=== PATIENT | male | born 1975 | race African-American/Black ===

== ENCOUNTER 2025-06-17 10:39 | Outpatient (AMB) | payer OTHER, SELFPAY ==
[2025-06-17 10:51] VITALS: BP 134/74; PULSE 111; O2SAT 97; BMI 40.4
--- NOTE | 2025-06-17 10:51 | A.OFFVIS_ITS ---
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 Photographic Processor Required: No Allergies No Known Allergies Allergy (Verified 06/17/25 10:58) HPI Comments Details: 50-year-old male with a past medical history of chronic rhinitis and nasal obstruction with adhesions or nasal cavity who is being referred to me by ENT for the evaluation of underlying small-vessel vasculitis. Patient had been following ENT in February for sinusitis, this developed nine months ago. As a child he never had sinus issues, recurrent ear infections, no heamturia, no kidney problems, no numbness or weakness in arms or feet, no foot drop, no wrist drop, no fevers, nights weats, fatigue, weight loss, no eye pain, no eye redness, no eye inflammation, no skin rashes, no skin ulcers. in terms of joint pain, he endorses some shoulder stiffness in the right shoulder otherwise no other joint pain as such no bloody diarreaha no abdominal pain no ulcers in mouth, no dry eyes no dry mouth no rayanuds phenomenon endorses photosensitivity no recent medication,no cocaine use, no IV drug use He then where he underwent a biopsy of bilateral nasal turbinates which showed sinonasal tissue with chronic inflammation no diagnostic evidence of malignancy or vasculitis. His blood tests show a negative p-ANCA and C ANCA, slightly positive MPO at 490, ESR 41. FH: doesnt know he is adopted Vital signs reviewed Physical Examination CONSTITUITIONAL Patient alert and cooperative. Well appearing and in no apparent painful distress HEENT Conjunctiva and sclera clear. No lymphadenopathy. CHEST/RESPIRATORY SYSTEM Normal respiratory effort and able to speak in complete sentences. Clear to auscultation bilaterally. No crackles, rales, rhonchi, wheezes heard. CARDIAC SYSTEM Regular rate and rhythm. S1 and S2 heard no murmurs. Radial pulses intact bilaterally MSK Hands * Right Hand: Able to make a fist. No swelling or tenderness to palpation of the MCPs, PIPs or DIPs. No deformities noted. * Left Hand: Able to make a fist. No swelling or tenderness to palpation of the MCPs, PIPs or DIPs. No deformities noted. Wrists * Right Wrist: Full ROM to flexion and extension. No swelling or TTP * Left Wrist: Full ROM to flexion and extension. No swelling or TTP Elbows * Right Elbow: Full ROM. No swelling or TTP. No TTP of the medial epicondyle. No TTP of the lateral epicondyle * Left Elbow: Full ROM. No swelling or TTP. No TTP of the medial epicondyle. No TTP of the lateral epicondyle Shoulders * Right shoulder: Full ROM. No swelling noted. No TTP of the AC joint. No TTP of the subacromial bursa. No TTP of the posterior shoulder * Left shoulder: Full ROM. No swelling noted. No TTP of the AC joint. No TTP of the subacromial bursa. No TTP of the posterior shoulder Hips * Right hip: Good ROM. * Left hip: Good ROM. Hip bursa: No tenderness to palpation bilaterally Knees * Right knee: Full ROM. No swelling noted. No TTP of the knee joint line. No TTP of pes anserine bursa * Left knee: Full ROM. No swelling noted. No TTP of the knee joint line. No TTP of pes anserine bursa. Ankles * Right ankle: Good ankle dorsiflexion and plantar flexion. No swelling. No TTP of the ankle joint * Left ankle: Good ankle dorsiflexion and plantar flexion. No swelling. No TTP of the ankle joint Feet * Right foot: Negative squeeze test * Left foot: Negative squeeze test Tender points? * No tenderness to palpation of the bilateral trapezius, supraspinatus, anterior costochondral junctions, bilateral suboccipital muscle insertions SKIN ON basilar lower extremities, patient had scabs and bruising, however there was no sign of livedo reticularis, no skin ulcers. - [facility] Medical History (Updated 06/17/25 @ 12:49 by Yoli Weinberg MD) Nasal obstruction Sinusitis Rhinitis Autoimmune disorder Hypertension Anemia Diabetes Social History (Updated 06/17/25 @ 11:04 by Jessie Weller CMA) Alcohol intake: current Alcohol intake frequency: holidays/special occasions only Patient Tobacco Use Status: Never used Tobacco Physical Exam Vital Signs: Last Vital Signs Pulse 111 H 06/17/25 10:51 BP 134/74 11/26/25 10:51 Pulse Ox 97 06/17/25 10:51 Oxygen Delivery Method Room Air 06/17/25 10:51 BMI result Body Mass Index 40.4 Assessment & Plan Assessment & Plan (1) Chronic sinusitis: Code(s): J32.9 - Chronic sinusitis, unspecified Category: Medical Qualifiers: Sinusitis location: unspecified location Qualified Code(s): J32.9 - Chronic sinusitis, unspecified (2) P-ANCA and MPO antibodies positive: Code(s): R76.89 - Other specified abnormal immunological findings in serum Category: Medical Plan: 50-year-old male with a past medical history of chronic rhinitis and nasal obstruction with adhesions or nasal cavity who is being referred to me by ENT for the evaluation of underlying small-vessel vasculitis. Patient had been following ENT in February for sinusitis, this developed nine months ago. In terms of history and review of systems, he denies other symptoms and signs of vasculitis, including hemoptysis, hematuria, skin rashes, ulcerations, mononeuritis multiplex With his nasal turbinate biopsy showing chronic inflammation, no signs of malignancy or vasculitis, I do have a low suspicion for systemic vasculitis, particularly small-vessel vasculitis causing his chronic rhinitis and nasal obstruction however I will complete workup, I will do ANCA with reflex MPO PR3, EVELYN reflex titer and pattern, EVELYN subsets, complements, inflammatory markers, urine studies. I will also check CBC CMP along with infectious etiologies like hepatitis A B C profile and HIV. I will also obtain a chest x-ray to look for stigmata of vasculitis Patient reported that he would like to get his labs done at [facility], he will also get his chest x-ray from there. I requested him to send the labs to us for review on her next follow-up. Follow up will be in 3 weeks Plan 50-year-old male with a past medical history of chronic rhinitis and nasal obstruction with adhesions or nasal cavity who is being referred to me by ENT for the evaluation of underlying small-vessel vasculitis. Patient had been following ENT in February for sinusitis, this developed nine months ago. In terms of history and review of systems, he denies other symptoms and signs of vasculitis, including hemoptysis, hematuria, skin rashes, ulcerations, mononeuritis multiplex With his nasal turbinate biopsy showing chronic inflammation, no signs of malignancy or vasculitis, I do have a low suspicion for systemic vasculitis, particularly small-vessel vasculitis causing his chronic rhinitis and nasal obstruction however I will complete workup, I will do ANCA with reflex MPO PR3, EVELYN reflex titer and pattern, EVELYN subsets, complements, inflammatory markers, urine studies. I will also check CBC CMP along with infectious etiologies like hepatitis A B C profile and HIV. I will also obtain a chest x-ray to look for stigmata of vasculitis Patient reported that he would like to get his labs done at [facility], he will also get his chest x-ray from there. I requested him to send the labs to us for review on her next follow-up. 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 Panel Today R76.89 - Other specified abnormal immunological findings in serum C Reactive Protein Today R76.89 - Other specified abnormal immunological findings in serum Cryoglobulin Today R76.89 - Other specified abnormal immunological findings in serum Sjogren's Antibodies Today R76.89 - Other specified abnormal immunological findings in serum Myeloperoxidase Antibody Today R76.89 - Other specified abnormal immunological findings in serum UA ClnCatch+Micro w/rflx Cult Today M32.9 - Systemic lupus erythematosus, unspecified Hepatitis A,B,C Profile Today J32.9 - Chronic sinusitis, unspecified, R76.89 - Other specified abnormal immunological findings in serum Erythrocyte Sedimentation Rate Today R76.89 - Other specified abnormal immunological findings in serum ANCA Vasculitides Today R76.89 - Other specified abnormal immunological findings in serum Anti DNA DS Antibody Today R76.89 - Other specified abnormal immunological findings in serum Complete Blood Count Auto Diff Today R76.89 - Other specified abnormal immunological findings in serum HIV Ab/Ag Today R76.89 - Other specified abnormal immunological findings in serum Neutrophil Cytoplasma Ab Today R76.89 - Other specified abnormal immunological findings in serum Scleroderma 70 Antibody Today R76.89 - Other specified abnormal immunological findings in serum Proteinase 3 PR3 Antibodies Today J32.9 - Chronic sinusitis, unspecified XR chest 1V Today R76.89 - Other specified abnormal immunological findings in serum Protein Creatinine Ratio, Ur Today M32.9 - Systemic lupus erythematosus, unspecified Coding Level of Care Code New Pt Level 4 (45030) Diagnoses Chronic sinusitis, unspecified location J32.9 Sinusitis location: unspecified location P-ANCA and MPO antibodies positive R76.89
--- OUTSIDE RECORDS SUMMARY | 2025-06-17 12:50 | XMS_ITS | Data Portability ---
Author Organization [place] - [facility], Allergy Address [address] [place] [address] Care Team Providers Care Fabric Designer Name Role Phone CELSAPATRICIA GREENWOOD Referring Provider [phone] Assessment Encounter Date Assessment Date Assessment LastModified by Organization Details LastModified Time 02/02/2025 02/02/2025 Bilateral nasal obstruction left greater than right with evidence of adhesions. Suggest workup for vasculitis and autoimmune disorders [email or web address] Not available 02/02/2025 12:53:30 03/09/2025 03/09/2025 - Nasal crusting and adhesion, bilateral A biopsy of the nasal tissue between the turbinate and septum was performed bilateraly to evaluate for potential blood vessel inflammation or other underlying pathology. The risks of the procedure, including bleeding and potential scarring, were discussed with the patient. The tissue samples were sent to the lab for analysis. The patient was advised to use saltwater nose drops to alleviate symptoms and was informed about the possibility of using bleed cease, a gauze product available at the pharmacy, to manage any bleeding at home. The patient was educated on the potential need for surgical intervention, such as removal of scar tissue and placement of a steroid stent, depending on the biopsy results. Follow-up communication will be conducted via phone to discuss the biopsy findings and next steps. Procedure Documentation: - Biopsy of nasal tissue between turbinate and septum [email or web address] Not available 03/09/2025 16:54:16 Plan of Treatment Reminders Order Date Submit Date Provider Last Modified By Organization Details Last Modified Time Details Appointments None recorded. Lab unlisted lab - H+E histology w/stains 2024 025 [email or web address] [facility] (Centralized Electronic Ordering - All Locations), Patient Can Go To The Location Of Their Choice, [id number] 08/28/202 5 11:45:43 unlisted lab - H+E histology w/stains 2024 025 GÓMEZ [facility] (Centralized Electronic Ordering - All Locations), Patient Can Go To The Location Of Their Choice, 5 10:06:49 unlisted lab - C-anca+P-an ca w/reflex 2024 025 GÓMEZ [facility] (Centralized Electronic Ordering - All Locations), Patient Can Go To The Location Of Their Choice, 07:27:49 myeloperoxi dase, QN, plasma 2024 025 GÓMEZ [facility] (Centralized Electronic Ordering - All Locations), Patient Can Go To The Location Of Their Choice, 07:27:49 ESR (erythrocyt e sedimentati on rate), blood 2024 GÓMEZ [facility] (Centralized Electronic Ordering - All Locations), Patient Can Go To The Location Of Their Choice, 07:27:50 CBC w/ auto diff 2024 025 GÓMEZ [facility] (Centralized Electronic Ordering - All Locations), Patient Can Go To The Location Of Their Choice, 07:27:48 ige, total, serum 2024 GÓMEZ [facility] (Centralized Electronic Ordering - All Locations), Patient Can Go To The Location Of Their Choice, 07:27:50 Referral None recorded. Procedures None recorded. Surgeries None recorded. Imaging CT, sinuses, w/o contrast 2024 025 [email or web address] [facility] [place], [address], [address], [place], [address], 16:42:58 Medication Orders None recorded. Patient TargetsNo targets recorded. Patient Instructions Encounter Date Encounter Id Patient Instructions Last Modified By Organization Details Last Modified Time 03/09/2025 [id number] Use saltwater nose drops to alleviate symptoms Obtain bleed seats from the pharmacy to manage any bleeding at home Follow up via phone for biopsy results and next steps [email or web address] Not available 03/09/2025 16:32:26 Please note: Parts of this encounter note have been generated by AI based on audio conversation. Patient consent was required prior to utilizing this technology. Content review was required prior to finalizing the note. [email or web address] Not available 03/09/2025 16:32:27 Reason for Referral None Reported. Results Created Date Observation Date Name Description Value Unit Range Abnormal Flag Note LastModifiedBy Organization Detail LastModifiedTime 02/03/2002/03/2025 CBC WITH DIFFE RENTI AL/PL ATELE T WBC 9.5 x10e3 /uL 3.4-10 .8 normal Not Available [facility] ([facility]) [address] [place], [address], 02/05/2025 07:27:46 02/03/2002/03/2025 CBC WITH DIFFE RENTI AL/PL ATELE T RBC 4.01 x10e6 /uL 4.14-5 .80 below low normal Not Available [facility] ([facility]) [address] [place], [address], 02/05/2025 07:27:46 02/03/2002/03/2025 CBC WITH DIFFE RENTI AL/PL ATELE T hemoglobin 12.2 g/dL 13.0-1 7.7 below low normal Not Available [facility] ([facility]) [address] [place], [address], 02/05/2025 07:27:46 02/03/2002/03/2025 CBC WITH DIFFE RENTI AL/PL ATELE T hematocrit 38.4 % 37.5-5 1.0 normal Not Available [facility] ([facility]) [address] [place], [address], 02/05/2025 07:27:46 02/03/20 25 02/03/2025 CBC WITH DIFFE RENTI AL/PL ATELE T MCV 96 fL 79-97 normal Not Available [facility] ([facility]) [address] [facility], [place], [address], 02/05/2025 07:27:46 02/03/20 25 02/03/2025 CBC WITH DIFFE RENTI AL/PL ATELE T MCH 30.4 pg 26.6-3 3.0 normal Not Available [facility] ([facility]) [address] [facility], [place], [address], 02/05/2025 07:27:46 02/03/20 25 02/03/2025 CBC WITH DIFFE RENTI AL/PL ATELE T MCHC 31.8 g/dL 31.5-3 5.7 normal Not Available [facility] ([facility]) [address] [facility], [place], [address], 02/05/2025 07:27:46 02/03/20 25 02/03/2025 CBC WITH DIFFE RENTI AL/PL ATELE T RDW 13.3 % 11.6-1 5.4 Not Available [facility] ([facility]) [address] [facility], [place], [address], 02/05/2025 07:27:46 02/03/20 25 02/03/2025 CBC WITH DIFFE RENTI AL/PL ATELE T platelets 342 x10e3 /uL 150-45 0 normal Not Available [facility] ([facility]) [address] [place], [address], 02/05/2025 07:27:46 02/03/2002/03/2025 CBC WITH DIFFE RENTI AL/PL ATELE T neutrophils 59 % not estab. normal Not Available [facility] ([facility]) [address] [place], [address], 02/05/2025 07:27:46 02/03/20 25 02/03/2025 CBC WITH DIFFE RENTI AL/PL ATELE T lymphs 31 % not estab. normal Not Available [facility] ([facility]) [address] [place], [address], 02/05/2025 07:27:46 02/03/20 25 02/03/2025 CBC WITH DIFFE RENTI AL/PL ATELE T monocytes 8 % not estab. normal Not Available [facility] ([facility]) [address] [place], [address], 02/05/2025 07:27:46 02/03/20 25 02/03/2025 CBC WITH DIFFE RENTI AL/PL ATELE T eos 2 % not estab. normal Not Available [facility] ([facility]) [address] [place], [address], 02/05/2025 07:27:46 02/03/20 25 02/03/2025 CBC WITH DIFFE RENTI AL/PL ATELE T basos 0 % not estab. normal Not Available [facility] ([facility]) [address] [place], [address], 02/05/2025 07:27:46 02/03/20 25 02/03/2025 CBC WITH DIFFE RENTI AL/PL ATELE T immature cells TALLOW MAKER Not Available [facility] ([facility]) [address] [place], [address], 02/05/2025 07:27:46 02/03/20 25 02/03/2025 CBC WITH DIFFE RENTI AL/PL ATELE T neutrophils (absolute) 5.4 x10e3 /uL 1.4-7. 0 normal Not Available [facility] ([facility]) [address] [place], [address], 02/05/2025 07:27:46 02/03/20 25 02/03/2025 CBC WITH DIFFE RENTI AL/PL ATELE T lymphs (absolute) 3.0 x10e3 /uL 0.7-3. 1 normal Not Available [facility] ([facility]) [address] [place], [address], 02/05/2025 07:27:46 02/03/20 25 02/03/2025 CBC WITH DIFFE RENTI AL/PL ATELE T monocytes(ab solute) 0.8 x10e3 /uL 0.1-0. 9 normal Not Available [facility] ([facility]) [address] [facility], [place], [address], 02/05/2025 07:27:46 02/03/20 25 02/03/2025 CBC WITH DIFFE RENTI AL/PL ATELE T eos (absolute) 0.2 x10e3 /uL 0.0-0. 4 normal Not Available [facility] ([facility]) [address] [place], [address], 02/05/2025 07:27:46 02/03/20 25 02/03/2025 CBC WITH DIFFE RENTI AL/PL ATELE T baso (absolute) 0.0 x10e3 /uL 0.0-0. 2 normal Not Available [facility] ([facility]) [address] [place], [address], 02/05/2025 07:27:46 02/03/20 25 02/03/2025 CBC WITH DIFFE RENTI AL/PL ATELE T immature granulocytes 0 % not estab. Not Available [facility] ([facility]) [address] [place], [address], 02/05/2025 07:27:46 02/03/20 25 02/03/2025 CBC WITH DIFFE RENTI AL/PL ATELE T immature grans (abs) 0.0 x10e3 /uL 0.0-0. 1 Not Available [facility] ([facility]) [address] [place], [address], 02/05/2025 07:27:46 02/03/20 25 02/03/2025 CBC WITH DIFFE RENTI AL/PL ATELE T NRBC TALLOW MAKER Not Available [facility] ([facility]) [address] [place], [address], 02/05/2025 07:27:46 02/03/20 25 02/03/2025 CBC WITH DIFFE VADIM AL/PL ATELE T hematology comments: TALLOW MAKER Not Available [facility] ([facility]) [address], [place], [address], 02/05/2025 07:27:46 02/03/20 25 02/04/2025 C-ANC A+P-A NCA W/REF SHONDA cytoplasmic (C-anca) <1:20 titer neg:<1 :20 Not Available [facility] ([facility]) [address], [place], [address], 02/05/2025 07:27:49 02/03/2002/04/2025 C-ANC A+P-A NCA W/REF SHONDA perinuclear (P-anca) <1:20 titer neg:<1 :20 The prese nce of posit anibal fluor escen ce exhib iting P-ANC A or C-ANC A patte rns alone is not speci fic for the diagn osis of Wegen er's Granu lomat osis (WG) or micro scopi c polya ngiit is. Decis ions about treat ment shoul d not be based solel y on ANCA IFA resul ts. The Inter natio nal ANCA Group Conse nsus recom mends follo w up testi ng of posit anibal sera with both SD-3 and MPO-A NCA enzym e immun oassa ys. As many as 5% serum sampl es are posit anibal only by EIA. Ref. AM J Clin Patho l 1999; 111:5 07-51 3. Not Available [facility] ([facility]) [address], [place], [address], 02/05/2025 07:27:49 02/03/2002/05/2025 MYELO PEROX IDASE (MPO) myeloperoxid ase (mpo) 490 pmol/ L 0-469 above high normal Low CVD Risk <470 Moder ate Risk 470 - 539 High Risk >539 Not Available [facility] ([facility]) [address] [facility], [place], [address], 02/05/2025 07:27:49 02/03/2002/04/2025 IMMUN OGLOB ULIN E, TOTAL immunoglobul in E, total 448 IU/mL 6-495 Not Available [facility] ([facility]) [address] [facility], [place], [address], 02/05/2025 07:27:50 02/03/2002/03/2025 SEDIM ENTAT ION RATE- WESTE RGREN sedimentatio n rate-westerg augie 41 mm/HR 0-30 above high normal Not Available [facility] ([facility]) [address] [facility], [place], [address], 02/05/2025 07:27:50 02/21/20 25 02/18/2025 CT, sinus es, w/o contr ast No observ ation record ed. [facility] [place] [address] [facility] [address], [place], [address], 03/04/2025 11:35:49 Result Notes None recorded. Problems Name Problem SNOMED Code Status Onset Date Resolution Date Notes Provider Name and Address Organization Details Recorded Time Nasal obstruction 374917990 Active 2024 PRUDENCIO CHACON MD [address] [address], [place], [address], [facility] - [facility] 11:15:11 Adhesions of nasal cavity 902617305 Active 2024 PRUDENCIO CHACON MD [address] [address], [place], [address], [place] - [facility] [place] 5 11:15:23 Chronic sinusitis 19965661 Active 2024 PRUDENCIO CHACON MD [address] [address], [place], [address], [facility] - [facility] 11:16:25 Autoimmune disease 89518243 Active 2024 PRUDENCIO CHACON MD [address] [address], [place], [address], [facility] - [facility] 12:49:37 Chronic rhinitis 85993095 Active 2024 PRUDENCIO CHACON MD [address], [address], [facility] - [facility] 12:49:41 Problem Notes None recorded. Procedures Surgical History Date Name Laterality Status Provider Name and Address Organization Details Recorded Time Biopsy Intranasal completed PRUDENCIO ALEXANDRA MD [address] [facility],[address], [address], [facility] - [facility] 03/09/2025 16:37:48 JMSNasal/Sinus Endoscopy completed PRUDENCIO ALEXANDRA MD [address] [facility],[address], [address], [facility] - [facility] 02/02/2025 11:18:18 Imaging Results None recorded. Procedure Notes None recorded. Medical Equipment None Reported. Allergies No known drug allergies Medications Name Sig Start Date Stop Date Status Note LastModified by Organization Details LastModified Time atorvastatin 20 mg tablet TAKE 1 TABLET BY MOUTH EVERY DAY active Not Available Not Available No t Available nifedipine ER 30 mg tablet,exten ded release TAKE 1 TABLET BY MOUTH EVERY DAY active Not Available Not Available No t Available metformin 1,000 mg tablet TAKE 1 TABLET BY MOUTH TWICE A DAY active Not Available Not Available No t Available losartan 100 mg tablet TAKE 1 TABLET BY MOUTH EVERY DAY active Not Available Not Available No t Available fluticasone propionate 50 mcg/actuatio n nasal spray,suspen wan INSTILL 1 SPRAY INTO NOSTRIL DAILY NEEDED 03/09 completed Not Available Not Available Not Available Vitals Date Recorded Body weight Body mass index (BMI) Body height Provider Name and Address Organization Details Last Updated DateTime 02/02/2025 239535.17 g 39.9 kg/m2 165.1 cm SUSU GATICA [place] - [facility] 02/02/2025 10:31:53 Date Recorded Body height Body mass index (BMI) Body weight Provider Name and Address Organization Details Last Updated DateTime 03/09/2025 165.1 cm 39.9 kg/m2 951059.17 g Radha Henriquez [place] - [facility] 03/09/2025 16:09:54 Social History None recorded. Functional Status Question Answer Note LastModified by Organizat ion Details LastModified Time What is your level of alcohol consumption? Occasional ccomi Information not available 02/02/2025 Mental Status None recorded. Family History Nothing Reported. Medical History Condition Response Diabetes Y Anemia Y Hypertension Y Past Encounters Encounter ID Performer Location Encounter Start Date Encounter Closed Date Diagnosis/Indication Diagnosis SNOMED-CT Code Diagnosis ICD10 Code Diagnosis IMO Codes Diagnosis Note [id number] PRUDENCIO COKER MD [facility] [address] [address] 02/02/2025 09:35:53 02/02/2025 11:17:34 Nasal obstruction 608051745 J34.89 [id number] Adhesions of nasal cavity 184917045 J34.89 40941689 Significan t adhesions between nasal septum and inferior turbinates . Patient denies any intranasal drug use. Suggest workup for vasculitis or autoimmune disorders Chronic sinusitis 405200 00 J32.9 [id number] PRUDENCIO COKER MD [facility] [address] [address] 03/09/2025 15:56:12 03/09/2025 16:33:38 Adhesions of nasal cavity 562902435 J34.89 95486112 Health Concerns Section Related Observation LastModified by Organization Detai ls LastModified Time None Recorded Concern Status LastModified by Organization Details LastModified Time None Recorded Advance Directives Directive None Recorded Payers Insurance Date Sequence Insurance Name Policy Number Policy Reece Covered Member ID Reece Member ID Guarantor Name 04/13/2025 1 [facility] - DOS ON OR AFTER 2022 - ONE CARE (MEDICARE REPLACEMENT/ADV ANTAGE - HMO) Margarito Du [id number] Margarito Du Notes Date Note Type Note Provider Name and Address Organization Details Recorded Time 02/02/2025 text/html Patient with chronic bilateral nasal obstruction left greater than right. Denies history of allergy, asthma, intranasal pharmaceutical use or sinus infections. No change with fluticasone nasal spray or saline solution PRUDENCIO ALEXANDRA MD [address] [facility] [address], [place], [address], [facility] - [facility] 02/02/2025 12:54:15 03/09/2025 text/html Margarito Du is a 49-year-old male who presents for nasal crusting and adhesion. The patient denies recent skin rashes, numbness, or tingling in the hands or feet. He also denies any history of drug use in the nose. The patient reports difficulty breathing through the left nostril and crustiness in both nostrils, with the right nostril being particularly problematic. A prior evaluation included a normal CAT scan and nonspecific markers of inflammation or autoimmune problems, including myeloperoxidase and sed rate, which may explain the nasal symptoms. PRUDENCIO ALEXANDRA MD [address] [facility],[address] [address], [place], [address], [facility] - [facility] 03/09/2025 16:56:07
--- OUTSIDE RECORDS SUMMARY | 2025-06-17 12:50 | XMS_ITS | Clinical Summary ---
Author Organization [facility] Facility Address [address] [place] [address] Care Team Providers Care Bridge Inspector Name Role Phone Nivia Merino TIER LIFT TRUCK OPERATOR Primary Care Provider [phone] Allergies No known active allergies Medications atorvastatin (LIPITOR) 20 MG tablet Take 1 tablet by mouth 1 (one) time each day Active losartan (COZAAR) 100 MG tablet Take 1 tablet by mouth 1 (one) time each day 11/02/2014 Active NIFEdipine CC (ADALAT CC) 30 MG 24 hr tablet TAKE 1 TABLET BY MOUTH EVERY DAY 90 tablet 6 03/14/2021 Active metFORMIN (GLUCOPHAGE) 1000 MG tablet Take 1 tablet by mouth in the morning and 1 tablet in the evening. 08/23/2021 Active Active Problems Problem Noted Date Diagnosed Date Chronic kidney disease stage 1 12/01/2020 Chronic kidney disease stage 2 12/01/2020 Hypertensive renal disease 12/01/2020 Proteinuria 12/01/2020 Renal disorder due to type 2 diabetes mellitus 0 12/01/2020 Vitamin D deficiency 12/01/2020 Social History Tobacco Use Types Packs/Day Years Used Date Smoking Tobacco: Never Smokeless Tobacco: Never Tobacco Cessation:Counseling Given: Not Answered Alcohol Use Standard Drinks/Week Comments Yes 0 (1 standard drink = 0.6 oz pure alcohol) Alcoholic Drinks/day: Occasional social drink Sex and Gender Information Value Date Recorded Sex Assigned at Not on file Legal Sex Male 5:09 PM EST Gender Identity Not on file Sexual Orientation Not on file Last Filed Vital Signs Vital Sign Reading Time Taken Comments Blood Pressure 122/83 03/16/2022 1:15 PM EDT Pulse 92 03/16/2022 1:15 PM EDT Temperature - - Respiratory Rate - - Oxygen Saturation 97% 01/14/2021 11:09 AM EDT Inhaled Oxygen Concentration - - Weight 102 kg (225 lb) 03/16/2022 1:15 PM EDT Height 165.1 cm (5' 5 ) 09/15/2021 1:22 PM EST Body Mass Index 37.44 09/15/2021 1:22 PM EST Plan of Treatment Health Maintenance Due Date Last Done Comments Hepatitis B Vaccine (1 of 3 - 19+ 3-dose series) 05/25 Pneumococcal Vaccine: 50+ Years (1 of 2 - PCV) 993 Diabetes: Ophthalmology Exam 08/23/2020 Diabetes: Pedal Pulse Checked 08/23/2020 Diabetes: Sensory Foot Exam 08/23/2020 Diabetes: Visual Foot Exam 08/23/2020 Colorectal Cancer Screening: Annual FOBT 2023 Colorectal Cancer Screening: Colonoscopy 2023 Colorectal Cancer Screening: Sigmoidoscopy 2023 Diabetes: Hemoglobin A1C 07/05/2023 04/05/2023 Influenza Vaccine (#1) 2025 Procedures Procedure Name Priority Date/Time Associated Diagnosis Comments HEMOGLOBIN A1C Routine 04/05/2023 9:57 AM EDT from Last 3 Months or Most Recently Relevant to Health Maintenance Results * (ABNORMAL) Hemoglobin A1c (04/05/2023 9:57 AM EDT) Hemoglobin A1C 6.9(H) (4.0-5.6) % [facility] Comment: MONITORING: In known diabetic patients, hemoglobin A1c targets should be discussed with health care provider. DIAGNOSTIC USE: The [place] Diabetes Association (ADA) and the World Health Organization (WHO) recommend the use of HbA1c to diagnose diabetes using a threshold of 6.5%. Patients who have an HbA1c between 5.7% and 6.4% are considered at increased risk for developing diabetes in the future. CAUTION: Falsely low HbA1c results may be observed in patients with hemolytic anemia, homozygous forms of abnormal hemoglobin (e.g. SS, CC, SC), , recent blood loss or hemoglobin F greater than 7%. Fructosamine may be used as an alternate test in these cases. REFERENCE: ADA: Standards of Medical Care in Diabetes 2020, The Journal of Clinical and Applied Research and Education Volume 43, Supplement 1 Testing performed or reported by [facility] [employer], a Service of [facility] [address] Dorian Martinez MD, [employer] [facility]# [id number] 04/05/2023 9:57 AM EDT 04/05/2023 10:00 AM EDT Aps External Provider LAB BLOOD ORDERABLES Final Result [facility] from Last 3 Months or Most Recently Relevant to Health Maintenance Insurance [facility] Care Teams Bridge Inspector Relationship Specialty Start Date End Date Nivia Merino NP [address] [place] [phone] PCP - General Nurse Practitioner 03/16/22
--- OUTSIDE RECORDS SUMMARY | 2025-06-17 12:50 | XMS_ITS | Clinical Summary ---
Author Organization [facility] Address [address] [place] [address] Care Team Providers Care Personal Care Service Provider Name Role Phone Nivia Merino COUNSELING CASE MANAGER Primary Care Provider [phone] Allergies No known active allergies Medications Medication Sig Dispensed Refills Start Date End Date Status NIFEDIPINE ER PO Take by mouth. 0 Acti ve atorvastatin (LIPITOR) tablet 20 mg Take 1 tablet (20 mg total) by mouth daily. 0 Active losartan (COZAAR) 100 MG tablet Take 1 tablet (100 mg total) by mouth daily. 0 Active metFORMIN (GLUCOPHAGE) tablet 1000 mg Take 1 tablet (1,000 mg total) by mouth 2 (two) times a day with meals. 0 Active Active Problems Problem Noted Date Diagnosed Date Normocytic anemia 06/12/2023 Lymphocytosis 06/12/2023 Social History Tobacco Use Types Packs/Day Years Used Date Smoking Tobacco: Never Smokeless Tobacco: Never Tobacco Cessation:Counseling Given: Not Answered Alcohol Use Standard Drinks/Week Comments Yes 0 (1 standard drink = 0.6 oz pur e alcohol) socially Sex and Gender Information Value Date Recorded Sex Assigned at Male 05/18/2023 1:15 PM EDT Gender Identity Not on file Sexual Orientation Not on file Job Start Date Occupation Industry Not on file Not on file Not on file Last Filed Vital Signs Vital Sign Reading Time Taken Comments Blood Pressure 128/96 01/17/2024 2:48 PM EDT Pulse 77 01/17/2024 2:48 PM EDT Temperature 36.1 C (97 F) 01/17/2024 2:48 PM EDT Respiratory Rate - - Oxygen Saturation 96% 01/17/2024 2:48 PM EDT Inhaled Oxygen Concentration - - Weight 108.9 kg (240 lb) 01/17/2024 2:48 PM EDT Height - - Body Mass Index - - Plan of Treatment Health Maintenance Due Date Last Done Comments Hepatitis B Vaccines (1 of 3 - 3-dose series) 1974 Hepatitis C Screening 1974 COVID-19 Vaccine (#1) 1974 Depression Screening 1986 Preventative Health Evaluation 1992 DTap / Tdap / Td (1 - Tdap) 1993 Colon Cancer Screening (Colonoscopy) 2019 Shingrix-Zoster Vaccine (1 of 2) 2024 Influenza Vaccine (#1) 2025 Pneumococcal Vaccine Aged Out No long er eligible based on patient's age to complete this topic RSV Ped < 20 months Aged Out No longe r eligible based on patient's age to complete this topic Care Teams Personal Care Service Provider Relationship Specialty Start Date End Date Nivia Merino NP [address] [facility] [place] [address] PCP - General Nurse Practitioner 05/18/23
== END 2025-06-17 11:46 | disposition home or self-care (01) ==
LOC: HO.RHES 10:40
PROVIDERS: PCP Otolaryngology; Visit Provider Student in an Organized Health Care Education/Training Program
DX: J32.9 Chronic sinusitis, unspecified (principal); R76.89 Other specified abnormal immunological findings in serum
CPT/HCPCS: 99204

== ENCOUNTER → 2025-06-17 10:39 | Outpatient (BNVA) | payer OTHER, SELFPAY | PROVIDERS: PCP Otolaryngology; Visit Provider Student in an Organized Health Care Education/Training Program | DX: R76.89 Other specified abnormal immunological findings in serum (principal); J32.9 Chronic sinusitis, unspecified; J34.89 Other specified disorders of nose and nasal sinuses | CPT/HCPCS: 99202 ==

== ENCOUNTER 2025-07-07 10:10 | Outpatient (AMB) | payer OTHER, SELFPAY ==
[2025-07-07 10:13] VITALS: BP 122/72; PULSE 106; O2SAT 97; BMI 40.1
--- NOTE | 2025-07-07 10:13 | A.OFFVIS_ITS ---
Vital Signs 07/07/25 10:13 Height 5 ft 5 in Weight 240 lb 15.444 oz BMI 40.1 BP 122/72 Blood Pressure Location Lt brachial Position Sitting Pulse 106 H Pulse Source Pulse Oximeter Pulse Oximetry (%) 97 Oxygen Delivery Method Room Air Intake Visit Reasons: 3week f/u Intake Note: Patient presents for follow up on chronic sinusitis/P-ANCA, MPO antibodies positive, with x-ray and lab review. 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 Patient had been following ENT in February for sinusitis, this developed 1 year ago Blood work was reviewed today, EVELYN EVELYN subsets were negative, upc are normal, CBC showed normal white cell count hemoglobin 12.3, eosinophils elevated at 0.5, eosinophil % normal, AST ALT creatinine normal, hepatitis AB and C normal. Patient had normal CRP, ESR slightly elevated at 36. His ANCA panel still pending. Chest x-ray did not show ground-glass opacities, showed some atelect asis/pneumonia. Today he feels well, he has no new symptoms. He says that with regards to his chronic sinusitis, sometimes he will have episodes where his nose clears up and he is able to be breath clearly, and sometimes he has nasal stuffiness Previous History:As a child he never had sinus issues, recurrent ear infections, no heamturia, no kidney problems, no numbness or weakness in arms or feet, no foot drop, no wrist drop, no fevers, nights sweats, fatigue, weight loss, no eye pain, no eye redness, no eye inflammation, no skin rashes, no skin ulcers. in terms of joint pain, he endorses some shoulder stiffness in the right shoulder otherwise no other joint pain as such no bloody diarreaha no abdominal pain no ulcers in mouth, no dry eyes no dry mouth no rayanuds phenomenon endorses photosensitivity no recent medication,no cocaine use, no IV drug use He then where he underwent a biopsy of bilateral nasal turbinates which showed sinonasal tissue with chronic inflammation no diagnostic evidence of malignancy or vasculitis. His blood tests show a negative p-ANCA and C ANCA, slightly positive MPO at 490, ESR 41. FH: doesnt know he is adopted Vital signs reviewed Physical Examination CONSTITUITIONAL Patient alert and cooperative. Well appearing and in no apparent painful distress HEENT Conjunctiva and sclera clear. No lymphadenopathy. CHEST/RESPIRATORY SYSTEM Normal respiratory effort and able to speak in complete sentences. Clear to auscultation bilaterally. No crackles, rales, rhonchi, wheezes heard. CARDIAC SYSTEM Regular rate and rhythm. S1 and S2 heard no murmurs. Radial pulses intact bilaterally MSK Hands * Right Hand: Able to make a fist. No swelling or tenderness to palpation of the MCPs, PIPs or DIPs. No deformities noted. * Left Hand: Able to make a fist. No swelling or tenderness to palpation of the MCPs, PIPs or DIPs. No deformities noted. Wrists * Right Wrist: Full ROM to flexion and extension. No swelling or TTP * Left Wrist: Full ROM to flexion and extension. No swelling or TTP Elbows * Right Elbow: Full ROM. No swelling or TTP. No TTP of the medial epicondyle. No TTP of the lateral epicondyle * Left Elbow: Full ROM. No swelling or TTP. No TTP of the medial epicondyle. No TTP of the lateral epicondyle Shoulders * Right shoulder: Full ROM. No swelling noted. No TTP of the AC joint. No TTP of the subacromial bursa. No TTP of the posterior shoulder * Left shoulder: Full ROM. No swelling noted. No TTP of the AC joint. No TTP of the subacromial bursa. No TTP of the posterior shoulder Hips * Right hip: Good ROM. * Left hip: Good ROM. Hip bursa: No tenderness to palpation bilaterally Knees * Right knee: Full ROM. No swelling noted. No TTP of the knee joint line. No TTP of pes anserine bursa * Left knee: Full ROM. No swelling noted. No TTP of the knee joint line. No TTP of pes anserine bursa. Ankles * Right ankle: Good ankle dorsiflexion and plantar flexion. No swelling. No TTP of the ankle joint * Left ankle: Good ankle dorsiflexion and plantar flexion. No swelling. No TTP of the ankle joint Feet * Right foot: Negative squeeze test * Left foot: Negative squeeze test Tender points? * No tenderness to palpation of the bilateral trapezius, supraspinatus, anterior costochondral junctions, bilateral suboccipital muscle insertions SKIN ON basilar lower extremities, patient had scabs and bruising, however there was no sign of livedo reticularis, no skin ulcers. [facility] Medical History (Updated 06/17/25 @ 12:49 by Yoli Weinberg MD) Nasal obstruction Sinusitis Rhinitis Autoimmune disorder Hypertension Anemia Diabetes Social History (Updated 06/17/25 @ 11:04 by Jessie Weller CMA) Alcohol intake: current Alcohol intake frequency: holidays/special occasions only Patient Tobacco Use Status: Never used Tobacco Physical Exam Vital Signs: Last Vital Signs Pulse 106 H 07/07/25 10:13 BP 122/72 07/07/25 10:13 Pulse Ox 97 07/07/25 10:13 Oxygen Delivery Method Room Air 07/07/25 10:13 BMI result Body Mass Index 40.1 Assessment & Plan Assessment & Plan (1) P-ANCA and MPO antibodies positive: Code(s): R76.89 - Other specified abnormal immunological findings in serum Category: Medical (2) Chronic sinusitis: Code(s): J32.9 - Chronic sinusitis, unspecified Category: Medical Qualifiers: Sinusitis location: unspecified location Qualified Code(s): J32.9 - Chronic sinusitis, unspecified Plan Based on patient's history, physical exam and lab work, with a negative ANCA slightly elevated MPO and only symptom being chronic sinusitis small-vessel vasculitis is very less likely. I repeated his ANCA panel, currently this is still pending over at [facility]. Rest of his autoimmune workup remains negative. He has a slightly elevated ESR of 36, CRP is negative. His most recent chest x-ray also does not show any ground-glass opacities. I will follow up with him in 3 months to see if he developed any new symptoms that would be concerning for vasculitis, such as new skin rashes, bloody urine, hemoptysis, difficulty breathing Coding Level of Care Code Est Pt Level 4 (29325) Diagnoses P-ANCA and MPO antibodies positive R76.89 Chronic sinusitis, unspecified location J32.9 Sinusitis location: unspecified location
--- OUTSIDE RECORDS SUMMARY | 2025-07-07 12:34 | XMS_ITS | Clinical Summary ---
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
== END 2025-07-07 10:46 | disposition home or self-care (01) ==
LOC: HO.RHES 10:10
PROVIDERS: PCP Otolaryngology; Visit Provider Student in an Organized Health Care Education/Training Program
DX: R76.89 Other specified abnormal immunological findings in serum (principal); J32.9 Chronic sinusitis, unspecified
CPT/HCPCS: 99213

== ENCOUNTER → 2025-07-07 10:10 | Outpatient (BNVA) | payer OTHER, SELFPAY | PROVIDERS: PCP Otolaryngology; Visit Provider Student in an Organized Health Care Education/Training Program | DX: R76.89 Other specified abnormal immunological findings in serum (principal); J32.9 Chronic sinusitis, unspecified; R70.0 Elevated erythrocyte sedimentation rate | CPT/HCPCS: 99212 ==